=== PATIENT | female | born 1965 | race Caucasian/White ===

== ENCOUNTER → 2018-03-18 | Outpatient (CLI) | payer OTHER | END | disposition home or self-care (01) | LOC: HKI 14:36 | DX: S86.912D Strain of unspecified muscle(s) and tendon(s) at lower leg level, left leg, subsequent encounter (principal); X58.XXXD Exposure to other specified factors, subsequent encounter | CPT/HCPCS: 73564; 73564-LT ==

== ENCOUNTER → 2018-05-13 | Outpatient (CLI) | payer OTHER | END | disposition home or self-care (01) | LOC: HKI 13:47 | DX: M94.262 Chondromalacia, left knee (principal) | CPT/HCPCS: Z7500 ==

== ENCOUNTER 2018-08-26 09:39 | Day surgery (SDC) | payer OTHER | END 2018-08-26 12:45 | disposition home or self-care (01) | LOC: GIL 09:39 | DX: Z12.11 Encounter for screening for malignant neoplasm of colon (principal); K57.30 Diverticulosis of large intestine without perforation or abscess without bleeding | CPT/HCPCS: 45378; 84703 ==